=== PATIENT | female | born 1960 | race Caucasian/White ===

== ENCOUNTER 2019-04-20 11:00 | Outpatient (RCR) | payer MEDICAID, OTHER, SELFPAY ==
[2019-03-22 12:36] VITALS: BP_SYST 156; BP_SYST 180
--- NOTE | 2019-03-22 13:50 | PTOPEVAL ---
Thank you for referring this patient to [facility]. Please review, sign, date and return this plan of care DIMAS. Pt seen for PT eval due to shoulder pain. She demonstrates impairments of left shoulder for weakness, decreased range, increased pain and decreased UE function. She requires additional skilled therapy 2x/wk x 8 wk to address impairments. I agree with and certify that the following plan of care is medically necessary. Referring Physician Date Attending Provider: Priyanka Gupta, Referring Provider: *PT Outpatient Evaluation Start: 03/22/19 12:32 Freq: Status: Active Protocol: Document 03/22/19 12:36 CAP (Rec: 03/22/19 13:34 CAP [id number]) Therapy Assessment Status Assessment Status Assessment Status Evaluation Outpatient Past Medical History Neurological History Hx Cerebrovascular Accident (CVA) Yes Hx Transient Ischemic Attacks (TIA) Yes Cardiovascular History Hx Coronary Artery Disease Yes Hx Hypercholesterolemia Yes Hx Hypertension Yes Respiratory History Hx Bronchitis Yes Hx Chronic Obstructive Pulmonary Disease Yes (COPD) Gastrointestinal History Hx Gastroesophageal Reflux Disease Yes Hx Irritable Bowel Yes Musculoskeletal History Hx Back Pain Yes: chronic neck and back pain Hx Fibromyalgia Yes Reproductive History Hx Section Yes Psychosocial History Hx Anxiety Yes Hx Depression Yes Hx Post Traumatic Stress Disorder Yes Pain History Has Past Pain Affected Your Daily Life Yes Evaluation Information Problem Diagnosis left shoulder pain Onset 12/26/18 Cause fall Subjective Information Pt had a fall 4 wk ago ( Text:As Reported By Patient/ ) landing on her back and Family left shoulder. She reports severe pain of left shoulder with ADL's and UE motion. She has limitations with reaching and carrying objects. 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 She received actue rehab in [id number] due to TIA. 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 She does not perform HEP or general fitness program. Diagnostic Tests X-Rays For This Problem Yes: no fr
--- NOTE | 2019-03-24 11:48 | PCPTNOTE ---
Patient called & cancelled scheduled appointment this date due to weather.
--- NOTE | 2019-04-01 11:31 | PCPTNOTE ---
Patient called & cancelled scheduled appointment this date due to having a sick kid.
[2019-04-20 10:59] VITALS: BP_SYST 180
--- NOTE | 2019-04-20 11:53 | PTOPEVAL ---
Thank you for referring this patient to [facility]. Please review, sign, date and return this plan of care DIMAS. Pt seen for 6 physical therapy visits to address shoulder impairments and pain. She demonstrates limited progress with shoulder range and strength. She reports improved function on the Quick Dash, but states she is not using the left UE for ADL's and IADL's 90% of the time. She demonstrates limited progress towards therapy goals. Recommend cont therapy 1-2x/wk x 4-6 wk to improve left UE impairments and function. I agree with and certify that the following plan of care is medically necessary. Referring Physician Date Attending Provider: Priyanka Gupta, Referring Provider: *PT Outpatient Re-Evaluation Start: 03/22/19 12:32 Freq: Status: Active Protocol: Document 04/20/19 10:59 CAP (Rec: 04/20/19 11:49 CAP [email or web address]) Therapy Assessment Status Re-evaluation Evaluation Information Problem Diagnosis left shoulder pain Onset 12/26/18 Cause fall Additional Evaluation Detail Pt had a fall 4 wk ago () landing on her back and left shoulder. She reports severe pain of left shoulder with ADL's and UE motion. She has limitations with reaching and carrying objects. 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 She received actue rehab in [id number] due to TIA. 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 Subjective Information Reports her shoulder is Query Text:As Reported By Patient/ painful with all motions. Family Reports limitations with ADL's due to pain. She does not use of left UE with most activities. She is performing her HEP daily. She does feel like the shoulder is moving better with the exercises, but also has increased pain. Reports improve numbness and tingling of left UE. She is able to carry 5# objects with the left UE. The use of heat provides minimal relief of pain. Pain Assessment Timing of Pain Assessment Timing of
--- NOTE | 2019-05-04 11:39 | PCPTNOTE ---
Patient called & cancelled scheduled appointment this date due to health risk for Coronavirus. She has decided to cancel her remaining therapy appointment due to medical concerns.
--- NOTE | 2019-05-04 11:47 | PCPTNOTE ---
Admitting Provider: Attending Provider: Priyanka Gupta, Patient:Anusha Huerta Date of :1960 Patient has not returned for any further treatments since 04/20/2019, therefore [f he/she] will be discharged from therapy at this time. She does not wish to continue therapy due to potential risk with the Coronavirus. The goals have been partially achieved. Thank you for referring this patient to [facility]. Please review, sign, date and return this discharge summary DIMAS. I have been updated about the patient's current status and I agree with discharge from the above service at this time. Referring Physician Date
== END 2019-05-04 14:17 | disposition home or self-care (01) ==
LOC: ANHPT 11:00
PROVIDERS: PCP Family Medicine; Visit Provider Family Medicine
DX: M25.519 Pain in unspecified shoulder (principal)
CPT/HCPCS: 97014; 97110; 97140; 97162; G0283

== ENCOUNTER 2019-12-20 12:59 | Outpatient (CLI) | payer OTHER, SELFPAY ==
--- NOTE | ~2019-12-20 | MM_ITS ---
EXAMINATION: MM diagnostic clive BI w juan francisco HISTORY: History of fibrocystic disease TECHNIQUE: Additional 3-D tomosynthesis images of the breasts were performed and synthetic 2-D images were generated. CAD analysis was submitted and interpreted. COMPARISON: Comparison to multiple prior studies sequentially, with oldest reviewed study dated 01/17. BREAST PARENCHYMAL COMPOSITION: Breast composed of scattered areas of fibroglandular density. FINDINGS: There are no suspicious masses, calcifications or architectural distortion in either breast to suggest malignancy. Stable mammogram. IMPRESSION: 1. No mammographic evidence for malignancy in either breast. 2. Routine yearly screening mammogram and regular clinical breast examination are recommended. BI-RADS Category 1: Negative Reviewed, dictated and finalized at location A. LY COORDINATOR IMPRESSION: 1. No mammographic evidence for malignancy in either breast. 2. Routine yearly screening mammogram and regular clinical breast examination a re recommended. BI-RADS Category 1: Negative
== END 2019-12-20 13:00 | disposition home or self-care (01) ==
PROVIDERS: PCP Family Medicine; Visit Provider Physician Assistant
DX: R92.8 Other abnormal and inconclusive findings on diagnostic imaging of breast (principal)
CPT/HCPCS: 77062; 77066; G0279

== ENCOUNTER 2020-03-29 09:56 | Outpatient (CLI) | payer OTHER, SELFPAY ==
--- NOTE | ~2020-03-29 | XR_ITS ---
EXAMINATION: XR knee RT 3V DATE: 03/29/2020 10:31 INDICATION: Right knee pain TECHNIQUE: Three views of the right knee were obtained. COMPARISON: None. FINDINGS: Alignment is normal. No fracture or osteochondral lesion. There is mild tricompartmental os teoarthritis characterized by tiny marginal osteophytes. No joint effusion/synovitis. Calcified athe rosclerosis is noted. IMPRESSION: 1. No acute osseous abnormality. Reviewed, dictated and finalized at location A. RIAL SPECIALIST
--- NOTE | ~2020-03-29 | XR_ITS ---
EXAMINATION: XR lumbar spine 2-3V DATE: 03/29/2020 10:31 INDICATION: Low back pain TECHNIQUE: Anteroposterior and lateral views of the lumbar spine, and cone-down lateral view of the l umbosacral junction were obtained. COMPARISON: 10/14/2016 FINDINGS: Lumbar levocurvature is noted. There is no fracture. Bone alignment is normal. There is sev ere loss of intervertebral disc space height at L3-4. Moderate loss of intervertebral disc space heig ht is present at L1-2 and L2-3. The vertebral body heights are maintained. There is severe facet oste oarthritis of the lower lumbar spine. Calcified atherosclerosis is noted. Degenerative osteophytes pr oject from the anterior endplates of multiple vertebral bodies. Surgical clips in the right upper brook drant are likely from prior cholecystectomy. IMPRESSION: 1. Severe lumbar spondylosis without acute findings or significant interval change. Reviewed, dictated and finalized at location A. T MGR IMPRESSION: 1. Severe lumbar spondylosis without acute findings or significant interval matt nge.
--- NOTE | ~2020-03-29 | XR_ITS ---
EXAMINATION: XR tibia fibula RT 2V INDICATION: Right leg pain TECHNIQUE: Two views of the right tibia and fibula are obtained on three radiographs COMPARISON: None available FINDINGS: Bone alignment is normal. There is no fracture. Mild osteoarthritis is noted at the knee. T here is calcified atherosclerosis. IMPRESSION: 1. No acute osseous abnormality. Reviewed, dictated and finalized at location A. SALES REPRESENTATIVE
--- NOTE | ~2020-03-29 | XR_ITS ---
EXAMINATION: XR knee LT 3V DATE: 03/29/2020 10:31 INDICATION: Left knee pain TECHNIQUE: Three views of the left knee were obtained. COMPARISON: None. FINDINGS: Alignment is normal. No fracture or osteochondral lesion. There is mild tricompartmental os teoarthritis characterized by tiny marginal osteophytes. No joint effusion/synovitis. Calcified athe rosclerosis is noted. There is a partially imaged endovascular stent projecting over the mid femur. IMPRESSION: 1. No acute osseous abnormality. Reviewed, dictated and finalized at location A. HAKAHAERE
--- NOTE | ~2020-03-29 | XR_ITS ---
EXAMINATION: XR hip BI 2V w AP pelvis DATE: 03/29/2020 10:31 INDICATION: Bilateral hip pain TECHNIQUE: AP view the pelvis and two views of each hip were obtained. COMPARISON: 02/05/2019 FINDINGS: Bone alignment is normal. There is no fracture. Calcified atherosclerosis is noted. There i s severe lower lumbar spondylosis. A partially imaged endoluminal stent is noted in the left thigh. IMPRESSION: 1. No acute osseous abnormality. Reviewed, dictated and finalized at location A. CTOR SAFETY
--- NOTE | ~2020-03-29 | XR_ITS ---
EXAMINATION: XR tibia fibula LT 2V INDICATION: Left leg pain TECHNIQUE: Two views of the left tibia and fibula are obtained. COMPARISON: None available FINDINGS: Bone alignment is normal. There is no fracture. Mild osteoarthritis is noted at the knee. T here is calcified atherosclerosis. IMPRESSION: 1. No acute osseous abnormality. Reviewed, dictated and finalized at location A. APPLICATION SUPPORT SPECIALIST
== END 2020-03-29 09:57 | disposition home or self-care (01) ==
LOC: ANHIMG 10:04
PROVIDERS: PCP Family Medicine; Visit Provider Family Medicine
DX: M79.606 Pain in leg, unspecified (principal); M25.551 Pain in right hip; M25.552 Pain in left hip; M25.561 Pain in right knee; M25.562 Pain in left knee; M54.5 Low back pain; M47.896 Other spondylosis, lumbar region
CPT/HCPCS: 72100; 73521; 73562; 73590

== ENCOUNTER 2021-03-30 13:42 | Outpatient (CLI) | payer OTHER, SELFPAY ==
--- NOTE | ~2021-03-30 | CT_ITS ---
EXAMINATION: CT brain wo con DATE: 03/30/2021 14:25 INDICATION: Fall, head injury. January 2021. History of transient ischemic attack. TECHNIQUE: Computed tomography (CT) of the head was performed without intravenous contrast. The mA wa s adjusted according to patient size. Iterative reconstruction technique was employed. Exam dose: 60 5.33 mGy-cm total exam DLP. COMPARISON: None FINDINGS: Bilateral carotid siphon and supraclinoid internal carotid artery calcifications. There is a wedge-shaped infarct along the posteromedial aspect of the right cerebellar hemisphere. Chronic right basal ganglia lacunar infarcts. Chronic anterior left. Ventricular lacunar infarct. There is a chronic focal posterior left parietal infarct. No intracranial mass lesion or hemorrhage, midline shift or mass effect. No acute cerebrovascular acc ident is evident, but CT is not sensitive for detection of hyperacute nonhemorrhagic cerebrovascular infarct. No subdural or epidural hematoma. There is prominent posterior soft tissue thickening of the left sphenoid sinus; paranasal sinuses are otherwise unremarkable. There is minimal opacification of inferior right mastoid air cells. The mastoid air cells are otherwi se unremarkable bilaterally. No fracture or bone destruction of the cranial vault. IMPRESSION: Chronic cerebellar and bilateral cerebral infarcts No acute intracranial finding or acute hemorrhage Cerebral atherosclerosis Reviewed, dictated and finalized at Location A. Reviewed, dictated and finalized at location A. TIONSHIP CONSULTANT
--- NOTE | ~2021-03-30 | XR_ITS ---
XR hip RT min 2V DATE: 03/30/2021 15:28 INDICATION: Chronic right hip pain radiating to back TECHNIQUE: AP and lateral views of right hip COMPARISON: March 29, 2020 AP pelvis and bilateral hips FINDINGS: No fracture or dislocation, avascular necrosis or bone destruction of the right hip. The pu bic symphysis and sacroiliac joints are intact. IMPRESSION: No significant abnormality Reviewed, dictated and finalized at location A. O ELECTRIC STATION OPERATOR IMPRESSION: No significant abnormality
== END 2021-03-30 13:43 | disposition home or self-care (01) ==
PROVIDERS: PCP Family Medicine; Visit Provider Physician Assistant
DX: S09.90XA Unspecified injury of head, initial encounter (principal); X58.XXXA Exposure to other specified factors, initial encounter
CPT/HCPCS: 70450; 73502

== ENCOUNTER → 2021-04-14 00:24 | Outpatient (CLI) | payer OTHER, SELFPAY ==
[2021-04-14 17:38] LABS: SARS-CoV-2 RNA PCR Negative
== END ==
PROVIDERS: PCP Family Medicine; Visit Provider Internal Medicine Gastroenterology
DX: Z01.812 Encounter for preprocedural laboratory examination (principal); Z20.822 Contact with and (suspected) exposure to COVID-19
CPT/HCPCS: C9803; U0003; U0005

== ENCOUNTER 2021-04-17 01:57 | Day surgery (SDC) | payer OTHER, SELFPAY ==
[2021-04-09 13:15] VITALS: BMI 25.4
--- NOTE | 2021-04-12 12:33 | PC.NURSE ---
SPOKE WITH PATIENT REGARDING PLAVIX, LAST DOSE TO BE TAKEN TODAY 04/12/21 AND TO HOLD TILL PROCEDURE 04/17/21. PT VERBALIZES UNDERSTANDING
[2021-04-17 08:43] VITALS: BP 146/70; PULSE 98; RESP 20; TEMP 36.1; O2SAT 100; BMI 24.3
--- NOTE | 2021-04-17 08:47 | WPDGICN ---
Assessment and Plan Assessment and plan (1) History of colon polyps: Code(s): Z86.010 - Personal history of colonic polyps Status: Acute Assessment and Plan: Patient has a history of adenomatous colon polyp most recently 2013. Plan is for surveillance colonoscopy at this time and likely at 5 year intervals in the future. GI Consult Note Consult date/time: 04/17/21 08:47 HPI: Anusha Huerta is a 60 year old female presents for screening colonoscopy. Patient had a previous colonoscopy in 2013 under the direction of Dr. Milton. At that time an adenomatous polyp was removed from the colon. Patient states that her current weight appetite bowel movements are normal. She denies abdominal pain. She has no pain. Family history is noncontributory. Review of Systems Review of Systems: All systems reviewed & are unremarkable except as noted in HPI and below PMFSH Social History Social History Smoking packs per day: 0.75 Smoking cigarettes per day: 15.0 Years smoked: 20 Smoking pack-years: 15.00 Smoking status: Former smoker Tobacco type: cigarettes Additional smoking assessment comments: OCC. CIG. OR VAPES NOW Alcohol intake: never Substance use: never Substance use type: marijuana Other substance usage details: OCC. 4-5 MO. AGO Living arrangements: with family Spiritual care concerns: No Meds Home Medications and Allergies Home Medications Medication Instructions Recorded Confirmed Type albuterol sulfate [Ventolin HFA] 2 puff INHALATION TID 04/09/21 04/09/21 History amitriptyline 50 mg PO HS 04/09/21 04/09/21 History atorvastatin 40 mg PO HS 04/09/21 04/09/21 History budesonide-formoterol [Symbicort] 2 puff INHALATION Q12H PRN 04/09/21 04/09/21 History cholecalciferol (vitamin D3) 125 mcg PO DAILY 04/09/21 04/09/21 History [Vitamin D3] clonazepam 0.5 mg PO BID PRN 04/09/21 04/09/21 History clopidogrel 75 mg PO HS 04/09/21 04/09/21 History cyclosporine [Restasis] 1 drp EACH EYE BID 04/09/21 04/09/21 History ezetimibe 10 mg PO DAILY 04/09/21 04/09/21 History fenofibrate 160 mg PO HS 04/09/21 04/09/21 History fluticasone propionate 2 spray INTRANASAL DAILY PRN 04/09/21 04/09/21 History hydrocodone-acetaminophen 1 tablet PO BID PRN 04/09/21 04/09/21 History lisinopril 5 mg PO DAILY 04/09/21 04/09/21 History oxybutynin chloride 10 mg PO HS 04/09/21 04/09/21 History tizanidine 4 mg PO Q6H PRN 04/09/21 04/09/21 History tobramycin-dexamethasone 1 drp EACH EYE PRN PRN 04/09/21 04/09/21 History valacyclovir 500 mg PO BID 04/09/21 04/09/21 History Allergies Allergy/AdvReac Type Severity Reaction Status Date / Time clarithromycin Allergy Intermediate Itching Verified 04/17/21 08:41 Vital Signs Vital Signs - 24 hr 04/17/21 08:43 Temperature 97.0 F L Pulse Rate 98 Respiratory Rate 20 Blood Pressure 146/70 H Pulse Oximetry 100 Exam Narrative: Physical exam reveals patient to be alert. Vital signs stable. HEENT exam is unremarkable. Patient is anicteric. Heart is without murmur or extra sounds. Abdominal exam bowel sounds are present soft nontender with no organomegaly. Digital external rectal exam is normal.
[2021-04-17] MEDS: LACTATED RINGERS 1,000 ML 150 ML IV CONT (08:58)
--- NOTE | 2021-04-17 09:32 | WPDANESEPPF ---
Anes - Initial Pre Proc Eval Procedure: Operation Date: 04/17/21 10:00 Proposed Procedures p Screening Colonoscopy - Farrukh Domingo MD Date/Time: 04/17/21 09:32 Surgeon: Farrukh Domingo MD Pre Op Diagnosis: neoplasm screening Patient Data Age: 60 Gender: F Height: 1.73 m Weight: 72.5 kg Last Vital Signs Temp 97.0 F L 04/17/21 08:43 Pulse 98 04/17/21 08:43 Resp 20 04/17/21 08:43 BP 146/70 H 04/17/21 08:43 Pulse Ox 100 04/17/21 08:43 Allergies Allergy/AdvReac Type Severity Reaction Status Date / Time clarithromycin Allergy Intermediate Itching Verified 04/17/21 08:41 Home Medications Medication Instructions Recorded Confirmed Type albuterol sulfate [Ventolin HFA] 2 puff INHALATION TID 04/09/21 04/09/21 History amitriptyline 50 mg PO HS 04/09/21 04/09/21 History atorvastatin 40 mg PO HS 04/09/21 04/09/21 History budesonide-formoterol [Symbicort] 2 puff INHALATION Q12H PRN 04/09/21 04/09/21 History cholecalciferol (vitamin D3) 125 mcg PO DAILY 04/09/21 04/09/21 History [Vitamin D3] clonazepam 0.5 mg PO BID PRN 04/09/21 04/09/21 History clopidogrel 75 mg PO HS 04/09/21 04/09/21 History cyclosporine [Restasis] 1 drp EACH EYE BID 04/09/21 04/09/21 History ezetimibe 10 mg PO DAILY 04/09/21 04/09/21 History fenofibrate 160 mg PO HS 04/09/21 04/09/21 History fluticasone propionate 2 spray INTRANASAL DAILY PRN 04/09/21 04/09/21 History hydrocodone-acetaminophen 1 tablet PO BID PRN 04/09/21 04/09/21 History lisinopril 5 mg PO DAILY 04/09/21 04/09/21 History oxybutynin chloride 10 mg PO HS 04/09/21 04/09/21 History tizanidine 4 mg PO Q6H PRN 04/09/21 04/09/21 History tobramycin-dexamethasone 1 drp EACH EYE PRN PRN 04/09/21 04/09/21 History valacyclovir 500 mg PO BID 04/09/21 04/09/21 History Patient hx anesthesia problems: none Family hx anesthesia problems: none Results Review: All pre-operative results and documents have been reviewed as part of the pre-operative evaluation. [facility] Past Medical History Medical History (Updated 04/17/21 @ 09:33 by Santino Kaur MD) CAD (coronary artery disease) Hyperlipidemia Hypertension PVD (peripheral vascular disease) with claudication TIA (transient ischemic attack) Social History Social History Smoking packs per day: 0.75 Smoking cigarettes per day: 15.0 Years smoked: 20 Smoking pack-years: 15.00 Smoking status: Former smoker Tobacco type: cigarettes Additional smoking assessment comments: OCC. CIG. OR VAPES NOW Alcohol intake: never Substance use: never Substance use type: marijuana Other substance usage details: OCC. 4-5 MO. AGO Living arrangements: with family Spiritual care concerns: No Anes - Eval Final PreProcedure Day of Procedure 04/17/21 09:32 Patient weight: normal Heart: regular rate and rhythm Lungs: clear to auscultation Airway: Mallampati scale class II Neurological: alert and oriented Last oral intake: >/= 8 hours ASA classification: III Emergent: no Anesthetic plan: proceed Anesthesia type and monitoring: general GIVS and standard monitoring Results Review: All pre-operative results and documents have been reviewed as part of the pre-operative evaluation. Informed Consent: The patient's anesthetic plan and its attendant risks and benefits were discussed with the patient/family/POA. Questions were solicited and answers provided to the satisfaction of the patient/family/POA.
[2021-04-17 10:08] VITALS: BP 121/64; PULSE 77; RESP 16; O2SAT 98
--- NOTE | 2021-04-17 10:10 | SUR.OPER ---
DR GONZALEZ MADE AWARE ONLY 1 ASCENDING COLON POLYP RETRIEVED. Yaakov ORELLANA RN & Chucho BAZZI RN.
[2021-04-17 10:18] VITALS: BP 141/64; PULSE 75; RESP 17; O2SAT 100
[2021-04-17 10:29] VITALS: BP 158/105; PULSE 90; RESP 18; O2SAT 100
== END 2021-04-17 10:45 | disposition home or self-care (01) ==
PROVIDERS: Visit Provider Internal Medicine Gastroenterology
PROC: 0DJD8ZZ Inspection of Lower Intestinal Tract, Via Natural or Artificial Opening Endoscopic (ICD-10-PCS; CPT 45378; principal; 2021-04-17 10:00)
DX: Z12.11 Encounter for screening for malignant neoplasm of colon (principal); D12.2 Benign neoplasm of ascending colon; D12.4 Benign neoplasm of descending colon; K64.8 Other hemorrhoids; Z79.51 Long term (current) use of inhaled steroids; I25.10 Atherosclerotic heart disease of native coronary artery without angina pectoris; I10 Essential (primary) hypertension; E78.5 Hyperlipidemia, unspecified; I73.9 Peripheral vascular disease, unspecified; Z86.73 Personal history of transient ischemic attack (TIA), and cerebral infarction without residual deficits; Z87.891 Personal history of nicotine dependence; F12.90 Cannabis use, unspecified, uncomplicated
CPT/HCPCS: 45385; 88305; J2704; J7120

== ENCOUNTER → 2021-12-18 09:21 | Outpatient (CLI) | payer MEDICARE, MEDICAID, SELFPAY ==
--- NOTE | ~2021-12-18 | XR_ITS ---
XR_CERV2-3V_CR DATE: 12/18/2021 09:50 INDICATION: Chronic neck pain. No injury. TECHNIQUE: AP, lateral, open-mouth views COMPARISON: 10/14/2016 cervical spine FINDINGS: There is reversal cervical curvature. There is chronic moderately severe degenerative disc disease at C3-4 and severe degenerative disease at C4-5, C5-6 and C6-7. There is uncovertebral joint spurring, particularly prominent at C5-6 and C6-7. C1 and C2 are normally aligned and the odontoid process appears intact. No fracture or dislocation or locked facet or prevertebral soft tissue swelling. IMPRESSION: Reversal cervical curvature Severe cervical spondylosis Reviewed, dictated and finalized at Location [facility]. Reviewed, dictated and finalized at location A.
--- NOTE | ~2021-12-18 | XR_ITS ---
XR lumbar spine 2-3V DATE: 12/18/2021 09:50 INDICATION: Chronic low back pain. No injury. TECHNIQUE: AP, lateral, coned lateral lumbosacral views COMPARISON: None FINDINGS: There is approximately 18 degrees levoscoliosis measured from L2 to L4. There is moderate degenerative disc disease at L1 to and severe degenerative disease at L2-3, L3-4. T here is degenerative disc disease on the left L4-5. L5-S1 mild degenerative disc disease. Minimal grade 1 anterolisthesis at L5-S1, likely due to degenerative change at the apophyseal joints. No fracture or bone destruction is evident. The included lower thoracic and lumbar pedicles are intac t. The sacroiliac joints appear normal. There is extensive calcification of the abdominal aorta and iliac arteries. No evidence of abdominal aortic aneurysm. Status post cholecystectomy. IMPRESSION: Levoscoliosis Multilevel degenerative disc disease, particularly severe at L2-3 and L3-4 Minimal grade 1 anterolisthesis at L5-S1 Reviewed, dictated and finalized at location A.
== END ==
PROVIDERS: PCP Physician Assistant; Visit Provider Physician Assistant
DX: M51.36 Other intervertebral disc degeneration, lumbar region (principal); M47.892 Other spondylosis, cervical region
CPT/HCPCS: 72040; 72100

== ENCOUNTER 2022-01-29 14:28 | Outpatient (CLI) | payer MEDICARE, MEDICAID, SELFPAY | END 2022-01-29 14:29 | disposition home or self-care (01) | LOC: ANHAUDIO 14:30 | PROVIDERS: PCP Physician Assistant; Visit Provider Physician Assistant | DX: H93.19 Tinnitus, unspecified ear (principal); H90.3 Sensorineural hearing loss, bilateral | CPT/HCPCS: 92557; 92567 ==

== ENCOUNTER → 2022-02-13 08:14 | Outpatient (CLI) | payer MEDICARE, MEDICAID, SELFPAY ==
--- NOTE | ~2022-02-13 | US_ITS ---
Ultrasound of the abdomen CLINICAL HISTORY: Hernia repair TECHNIQUE: Targeted sonographic imaging of the abdominal wall region was performed in the area of cli nical concern. FINDINGS: No mass lesion or fluid collection identified. No hernia identified. IMPRESSION: No definite imaging correlate seen for the area of palpable concern at the abdominal wall region. Reviewed, dictated and finalized at [facility]. UNE TELLER IMPRESSION: No definite imaging correlate seen for the area of palpable concern at the abdo jose wall region.
== END ==
PROVIDERS: PCP Physician Assistant; Visit Provider Physician Assistant
DX: Z98.890 Other specified postprocedural states (principal)
CPT/HCPCS: 76705

== ENCOUNTER → 2023-02-06 13:52 | Outpatient (CLI) | payer MEDICARE, SELFPAY ==
--- NOTE | ~2023-02-06 | MM_ITS ---
EXAMINATION: MM screening clive BI w juan francisco HISTORY: Screening mammogram TECHNIQUE: Craniocaudal and mediolateral oblique 3-D tomosynthesis images were obtained and synthetic 2-D images were generated. CAD analysis was submitted and interpreted. COMPARISON: 12/20/2019 bilateral screening mammogram BREAST PARENCHYMAL COMPOSITION: There are scattered areas of fibroglandular density. FINDINGS: There is no evidence of suspicious mass, calcification, or architectural distortion to sugg est malignancy in either breast. There has been no suspicious interval change. IMPRESSION: 1. No mammographic evidence of malignancy. 2. Recommend routine screening mammography in one year. BI-RADS Category 1: Negative Reviewed, dictated and finalized at location A. TY COMPLIANCE SPECIALIST
== END ==
PROVIDERS: PCP Internal Medicine
DX: Z12.31 Encounter for screening mammogram for malignant neoplasm of breast (principal)
CPT/HCPCS: 77063; 77067

== ENCOUNTER 2023-05-28 20:48 | Emergency (ER) | payer MEDICARE, SELFPAY ==
[2023-05-28] VITALS (33 sets, daily range): BP systolic 71–135; BP diastolic 40–117; PULSE 62–93; RESP 11–20; TEMP 36.1; O2SAT 95–100
--- NOTE | ~2023-05-28 | CT_ITS ---
EXAMINATION: CT brain wo con DATE: 05/28/2023 22:43 INDICATION: Headache TECHNIQUE: Computed tomography (CT) of the head was performed without intravenous contrast. The dose- length product was 605.33 mGy-cm. Automated exposure control and iterative reconstruction technique w ere employed. COMPARISON: CT report dated 03/30/2021 FINDINGS: Chronic bilateral lacunar infarctions. Chronic right cerebellar infarctions. Chronic left p arietal infarction. No ventriculomegaly or midline shift. There is intracranial atherosclerosis. No a cute intracranial hemorrhage, infarction, mass or mass effect. Paranasal sinuses and mastoids are pne umatized. There are scattered mild periventricular and subcortical white matter changes, most likely related to small vessel ischemic disease (microangiopathy). IMPRESSION: 1. No acute intracranial abnormality. Reviewed, dictated and finalized at location A.
--- NOTE | 2023-05-28 21:07 | ED.GENADULT ---
HPI - General Adult General Chief complaint: Unspecified Stated complaint: high blood pressure Time Seen by Provider: 05/28/23 21:00 Source: patient Mode of arrival: ambulatory Limitations: no limitations History of Present Illness HPI narrative: 62-year-old female, ex-smoker with a history of hypertension, dyslipidemia, chronic pain from cervical spondylosis, anxiety / depression, COPD, peripheral vascular disease status post bilateral lower extremity interventions with claudication, left carotid stenosis status post carotid endarterectomy on 05/26 2023 presents to the ER with -- high blood pressure. The patient stated that her blood pressures have been 190/94. Current blood pressure is noted to be 130/63. no headache, no chest pain. No shortness of breath. -- Left carotid postoperative pain -- chronic headache no new focal deficits are noted. No speech abnormalities. Onset (ago): hour(s) ( 12 hours) Pain Consistency: constant Relieving factors: none Exacerbating factors: none Related Data Home Medications Medication Instructions Recorded Confirmed albuterol sulfate 90 mcg/actuation 1 puff inhalation PRN PRN 04/09/21 05/28/23 aerosol inhaler (Ventolin HFA) WHEEZING, SHORTNESS OF BREATH atorvastatin 40 mg tablet (Lipitor) 80 mg PO DAILY 04/09/21 05/28/23 cyclosporine 0.05 % eye drops in a 1 drp EACH EYE BID 04/09/21 05/28/23 dropperette (Restasis) ezetimibe 10 mg tablet 10 mg PO DAILY 04/09/21 05/28/23 fenofibrate 160 mg tablet 160 mg PO DAILY 04/09/21 05/28/23 valacyclovir 500 mg tablet 1,000 mg PO HS 04/09/21 05/28/23 (Valtrex) famotidine 40 mg tablet (Pepcid) 40 mg PO BID 10/31/22 05/28/23 irbesartan 150 mg tablet (Avapro) 150 mg PO HS 12/24/22 05/28/23 Adult Aspirin Regimen 81 mg PO DAILY 05/28/23 05/28/23 Aspercreme (lidocaine) 1 patch topical DAILY 05/28/23 05/28/23 clindamycin 1 %-benzoyl peroxide 5 1 applic topical PRN PRN Acne 05/28/23 05/28/23 % topical gel ergocalciferol (vitamin D2) 1,250 1,250 mcg PO MONTHLY 05/28/23 05/28/23 mcg (50,000 unit) capsule (Vitamin D2) fluticasone fur. 100 mcg-umeclid See Rx Instructions .Route .COMPLEX 05/28/23 05/28/23 62.5 mcg-vilant 25 mcg inhalat.powder (Trelegy Ellipta) lorazepam 0.5 mg tablet (Ativan) 0.5 mg PO PRN PRN Anxiety 05/28/23 05/28/23 oxycodone 5 mg tablet 5 mg PO PRN PRN Pain 05/28/23 05/28/23 propranolol 10 mg tablet 10 mg PO TID 05/28/23 05/28/23 quetiapine 50 mg tablet (Seroquel) 50 mg PO HS 05/28/23 05/28/23 tizanidine 4 mg tablet (Zanaflex) 4 mg PO Q6H PRN Spasms 05/28/23 05/28/23 Allergies Allergy/AdvReac Type Severity Reaction Status Date / Time clarithromycin Allergy Intermediate Itching Verified 05/28/23 22:23 venlafaxine [From Effexor] Allergy Unknown Verified 05/28/23 22:16 adhesive AdvReac Unknown Verified 05/28/23 22:16 Review of Systems Review of Systems: All systems reviewed & are unremarkable except as noted in HPI and below Constitutional: Constitutional: Reports as per HPI and Reports no additional constitutional complaints Eyes: Eyes: Reports as per HPI and Reports no additional eye complaints ENT: Reports system reviewed and no additional complaints, except as documented and Reports as per HPI Cardiovascular: Cardiovascular: Reports as per HPI and Reports no additional cardiovascular complaints Respiratory: Respiratory: Reports as per HPI and Reports no additional respiratory complaints Gastrointestinal: Gastrointestinal: Reports as per HPI and Reports no additional gastrointestinal complaints Genitourinary: Genitourinary: Reports no additional female genitourinary complaints and Reports as per HPI Musculoskeletal: Musculoskeletal: Reports no additional musculoskeletal complaints and Reports as per HPI Comments: Chronic neck pain and headache Integumentary/Breasts: Skin/Breast: Reports system reviewed and no additional complaints, except as docu Comments: the right carotid incision looks healthy.
[2023-05-28 21:35] LABS: Basophils Absolute Auto 0.04 K/mm3 (0.00-0.10); Basophils Percent Auto 0.5 % (0.0-1.0); Eosinophils Percent Auto 2.7 % (1.0-6.0); Hematocrit 33.5 % (35.0-49.0); Hemoglobin 10.7 g/dL (12.0-15.0); Immature Granulocyte Absolute 0.02 K/mm3 (0.00-0.00); Immature Granulocyte Percent A 0.3 % (0.0-0.0); Lymphocytes Absolute Auto 2.15 K/mm3 (1.10-4.50); Lymphocytes Percent Auto 28.9 % (18.0-42.0); Mean Corpuscular HGB Conc 31.9 g/dL (32-36); Mean Corpuscular Hemoglobin 29.4 pg (27.0-31.0); Mean Platelet Volume 9.9 fl (9.2-11.8); Monocytes Absolute Auto 0.75 K/mm3 (0.10-0.90); Monocytes Percent Auto 10.1 % (2.0-11.0); Neutrophils Absolute Auto 4.27 K/mm3 (1.70-7.20); Neutrophils Percent Auto 57.5 % (50.0-70.0); Platelet Count Result 335 K/mm3 (150-420); Red Blood Count 3.64 M/mm3 (4.20-5.40); Red Cell Distribution Width 13.5 % (11.6-14.4); White Blood Count 7.4 K/mm3 (4.8-10.8)
--- NOTE | 2023-05-28 21:53 | ECG_ITS ---
Measurements Intervals [place] Rate: 72 P: 38 TX: 180 QRS: 32 QRSD: 82 T: 37 QT: 383 AVG RR 826 QTc: 407 QTcB 421 QTcF 408 Interpretive Statements SINUS RHYTHM LOW QRS VOLTAGE IN PRECORDIAL LEADS [QRS DEFLECTION < 1.0 mV IN CHEST LEADS] BORDERLINE ECG SEE SCANNED COPY FOR SIGNATURE MTDD
[2023-05-28 21:55] LABS: Anion Gap 6 mmol/L (4-12); Blood Urea Nitrogen 24 mg/dL (7-18); Calcium 8.5 mg/dL (8.5-10.1); Carbon Dioxide 28 mmol/L (21-32); Chloride 104 mmol/L (98-108); Estimated CRCL calculation 38 ml/min; Estimated Glomerular Filt Rate 39; Glucose 139 mg/dL (70-99); Osmolality Calculated 292 mOsm/kg (285-295); Potassium 4.1 mmol/L (3.5-5.1); Sodium 138 mmol/L (136-145)
[2023-05-28 21:58] LABS: Troponin I 9.7 ng/L (0.00-60.4)
[2023-05-28] MEDS: LACTATED RINGERS 500 ML 999 ML IV CONT (22:05)
[2023-05-28 22:15] LABS: Partial Thromboplastin Time 24.5 Sec (23.9-30.70); Prothrombin Time 10.8 Seconds (9.50-12.1)
[2023-05-28 22:22] LABS: Lactic Acid Reflex 1.4 mmol/L (0.4-2.0)
[2023-05-28 22:25] LABS: Alanine Aminotransferase 20 U/L (14-59); Albumin Level 3.1 g/dL (3.4-5.0); Alkaline Phosphatase 34 U/L (46-116); Aspartate Amino Transferase 22 U/L (15-37); Bilirubin Direct 0.1 mg/dL (0-0.2); Bilirubin,Total 0.3 mg/dL (0.00-1.00); Creatine Kinase 63 U/L (26-192); Lipase 24 U/L (16-77)
[2023-05-28 22:26] LABS: NT Pro B Type Natriuretic Pept 1071 pg/mL (0-125)
[2023-05-29] VITALS: PULSE 66; RESP 11; O2SAT 100
[2023-05-29 00:01] VITALS: BP 112/55; PULSE 65; RESP 14; O2SAT 100
[2023-05-29 00:23] VITALS: BP 112/55; PULSE 72
== END 2023-05-29 00:24 | disposition short-term general hospital (02) ==
PROVIDERS: Emergency Provider Internal Medicine Critical Care Medicine
DX: I95.9 Hypotension, unspecified (principal); Z98.890 Other specified postprocedural states; D64.9 Anemia, unspecified; I12.9 Hypertensive chronic kidney disease with stage 1 through stage 4 chronic kidney disease, or unspecified chronic kidney disease; N18.9 Chronic kidney disease, unspecified; E78.5 Hyperlipidemia, unspecified; J44.9 Chronic obstructive pulmonary disease, unspecified; G89.18 Other acute postprocedural pain; R51.9 Headache, unspecified; G89.29 Other chronic pain; M47.812 Spondylosis without myelopathy or radiculopathy, cervical region; I25.10 Atherosclerotic heart disease of native coronary artery without angina pectoris; I73.9 Peripheral vascular disease, unspecified; F41.9 Anxiety disorder, unspecified; F32.A Depression, unspecified; Z79.51 Long term (current) use of inhaled steroids; Z79.82 Long term (current) use of aspirin; Z86.73 Personal history of transient ischemic attack (TIA), and cerebral infarction without residual deficits; F17.290 Nicotine dependence, other tobacco product, uncomplicated; Z79.899 Other long term (current) drug therapy
CPT/HCPCS: 36415; 70450; 80048; 80076; 82550; 83605; 83690; 83880; 84484; 85025; 85610; 85730; 93005; 96365; 99285; J2371; J7060; J7120

== ENCOUNTER 2023-06-06 20:46 | Emergency (ER) | payer MEDICARE, SELFPAY ==
[2023-06-06 20:54] VITALS: BP 205/97; PULSE 86; RESP 18; TEMP 36.8; O2SAT 100
[2023-06-06 21:02] VITALS: PULSE 66
--- NOTE | 2023-06-06 21:03 | ED.GENADULT ---
HPI - General Adult General Chief complaint: Unspecified Stated complaint: high BP Time Seen by Provider: 06/06/23 20:52 History of Present Illness HPI narrative: The patient is a 62-year-old woman with multiple comorbidities: she is an ex-smoker with a history of hypertension, dyslipidemia, chronic pain from cervical spondylosis, anxiety / depression, COPD, peripheral vascular disease status post bilateral lower extremity interventions for claudication, left carotid stenosis status post carotid endarterectomy on 05/26 2023. she had presented to this emergency room 2 days after her carotid endarterectomy on 05/28/2023 with labile blood pressures, hypotensive, and was sent to [facility] for further management. She currently is on irbesartan 150 mg p.o. q.h.s. which she took at 6:00 p.m. this evening, and propranolol 10 mg p.o. t.i.d. her blood pressures have been elevated since yesterday, 170 systolic, today the blood pressures have been in the 200 systolic range. She took and dose of Excedrin for an associated headache. she called her block greaser. The increase her propranolol from 10 mg p.o. t.i.d. to a dose of 20 mg p.o. t.i.d.. She took the 1st dose of 20 mg at 3:00 p.m. today. Subsequent to that, she had an emesis episode. She has checked her blood pressure since that time, and it has remained elevated, in the 200 mmHg systolic range. She comes for evaluation. She has no other symptoms. No photophobia or sensitivity to movement or noise. No chest pain or abdominal pain. No motor sensory deficits. No other complaints. Related Data Home Medications Medication Instructions Recorded Confirmed albuterol sulfate 90 mcg/actuation 1 puff inhalation PRN PRN 04/09/21 06/06/23 aerosol inhaler (Ventolin HFA) WHEEZING, SHORTNESS OF BREATH atorvastatin 40 mg tablet (Lipitor) 80 mg PO DAILY 04/09/21 06/06/23 cyclosporine 0.05 % eye drops in a 1 drp EACH EYE BID 04/09/21 06/06/23 dropperette (Restasis) ezetimibe 10 mg tablet 10 mg PO DAILY 04/09/21 06/06/23 fenofibrate 160 mg tablet 160 mg PO DAILY 04/09/21 06/06/23 valacyclovir 500 mg tablet 1,000 mg PO HS 04/09/21 06/06/23 (Valtrex) famotidine 40 mg tablet (Pepcid) 40 mg PO BID 10/31/22 06/06/23 irbesartan 150 mg tablet (Avapro) 150 mg PO HS 12/24/22 06/06/23 aspirin 81 mg capsule 81 mg PO DAILY 05/28/23 06/06/23 ergocalciferol (vitamin D2) 1,250 1,250 mcg PO MONTHLY 05/28/23 06/06/23 mcg (50,000 unit) capsule (Vitamin D2) fluticasone fur. 100 mcg-umeclid See Rx Instructions .Route .COMPLEX 05/28/23 06/06/23 62.5 mcg-vilant 25 mcg inhalat.powder (Trelegy Ellipta) lidocaine 4 % topical patch 1 patch topical DAILY 05/28/23 06/06/23 (Aspercreme (lidocaine)) propranolol 10 mg tablet 10 mg PO TID 05/28/23 06/06/23 quetiapine 50 mg tablet (Seroquel) 50 mg PO HS 05/28/23 06/06/23 tizanidine 4 mg tablet (Zanaflex) 4 mg PO Q6H PRN Spasms 05/28/23 06/06/23 oxybutynin chloride 15 mg 15 mg PO DAILY 06/06/23 06/06/23 tablet,extended release 24 hr Allergies Allergy/AdvReac Type Severity Reaction Status Date / Time clarithromycin Allergy Intermediate Itching Verified 06/06/23 21:39 venlafaxine [From Effexor] Allergy Unknown Verified 06/06/23 21:39 adhesive AdvReac Unknown Verified 06/06/23 21:39 Review of Systems Review of Systems: All systems reviewed & are unremarkable except as noted in HPI and below Constitutional: Constitutional: Denies chills, Denies excessive sweating, Denies fatigue, Denies fever(s), Reports headache(s) and Denies weakness Eyes: Eyes: Denies change in vision and Denies photophobia ENT: Denies dysphagia, Denies dizziness, Denies lip swelling, Denies nasal congestion, Denies sore throat and Denies tongue swelling Cardiovascular: Cardiovascular: Denies chest pain, Denies syncope, Denies rapid heart rate and Denies dyspnea Respiratory: Respiratory: Denies cough, Denies dyspnea and Denies wheezing Gastrointestinal: Gastrointestinal:
[2023-06-06] MEDS: ONDANSETRON INJ 4 MG/2 ML VIAL IV PUSH ×2 (21:20→23:00)
[2023-06-06] MEDS: fentaNYL CITRATE INJ (*CRX) 100 MCG/2 ML VIAL 50 MCG IV PUSH (21:21)
[2023-06-06] MEDS: hydrALAZINE HCL 20 MG/ML VIAL 10 MG IV PUSH (21:23)
[2023-06-06 21:56] VITALS: BP 144/66; PULSE 61
--- NOTE | 2023-06-06 21:58 | PC.NURSE ---
Pain improved. Pt reports pain in left posterior neck. Pt noted to be turning head toward television on left side which is also the side of her endarterectomy. Pt bed repositioned to face television and towel roll added to pillow and pt reports improved discomfort. Call light in reach.
--- NOTE | 2023-06-06 22:20 | PC.NURSE ---
Pt resting reports still has some nausea at times. ERP aware. Awaiting further orders. Call light in reach.
[2023-06-06 22:21] VITALS: BP 122/50; PULSE 57; RESP 14; O2SAT 100
[2023-06-06 23:09] VITALS: BP 137/54; PULSE 57; RESP 16; O2SAT 96
[2023-06-06 23:25] VITALS: TEMP 36.4
== END 2023-06-06 23:25 | disposition home or self-care (01) ==
PROVIDERS: Emergency Provider Emergency Medicine; PCP Internal Medicine
DX: I16.0 Hypertensive urgency (principal); R51.9 Headache, unspecified; I10 Essential (primary) hypertension; E78.5 Hyperlipidemia, unspecified; J44.9 Chronic obstructive pulmonary disease, unspecified; I73.9 Peripheral vascular disease, unspecified; I25.10 Atherosclerotic heart disease of native coronary artery without angina pectoris; M47.812 Spondylosis without myelopathy or radiculopathy, cervical region; G89.29 Other chronic pain; Z79.51 Long term (current) use of inhaled steroids; Z79.82 Long term (current) use of aspirin; Z86.73 Personal history of transient ischemic attack (TIA), and cerebral infarction without residual deficits; F17.290 Nicotine dependence, other tobacco product, uncomplicated
CPT/HCPCS: 96374; 96375; 96376; 99284; J0360; J2405; J3010

== ENCOUNTER 2023-06-10 23:06 | Emergency (ER) | payer MEDICARE, SELFPAY ==
[2023-06-10 23:06] VITALS: BP 158/72; PULSE 69; RESP 18; TEMP 36.7; O2SAT 100
[2023-06-10 23:10] VITALS: BP 154/58
--- NOTE | 2023-06-10 23:20 | PC.NURSE ---
Patient spoke to extensively about being evaluated by ERP for her blood pressure and headache. Patient insists on going home since her blood pressure is about to her baseline, will go home and take tylenol for her headache. Patient states that she was worried at home because her home machine was reading much higher than what it is here. Blood pressure taken on both arms, see charting for results. Both were about baseline for her. Patient surgical incision also assessed of left carotid endarectetomy.. Surgical site is clean, dry and intact, no obvious signs of infection or drainage. Patient states that she hasnt had any issues with her incision site, but will follow up with her surgeon if need be. Patient educated on risks of not being seen by ERP for evaluation, states that she will come back if any other problems arise through out the night. Patient VSS at this of leaving ER. Steady gait with family member at side. Patient states that she will follow up with her PCP in the morning for further evaluation if needed.
--- NOTE | 2023-07-22 19:03 | ED.GENADULT ---
HPI - General Adult General Chief complaint: Recheck/Abnormal Lab/Rx Stated complaint: high BP History of Present Illness HPI narrative: I never saw this patient Related Data Home Medications Medication Instructions Recorded Confirmed albuterol sulfate 90 mcg/actuation 1 puff inhalation PRN PRN 04/09/21 06/12/23 aerosol inhaler (Ventolin HFA) WHEEZING, SHORTNESS OF BREATH atorvastatin 40 mg tablet (Lipitor) 80 mg PO DAILY 04/09/21 06/12/23 cyclosporine 0.05 % eye drops in a 1 drp EACH EYE BID 04/09/21 06/12/23 dropperette (Restasis) ezetimibe 10 mg tablet 10 mg PO DAILY 04/09/21 06/12/23 fenofibrate 160 mg tablet 160 mg PO DAILY 04/09/21 06/12/23 valacyclovir 500 mg tablet 1,000 mg PO HS 04/09/21 06/12/23 (Valtrex) famotidine 40 mg tablet (Pepcid) 40 mg PO BID 10/31/22 06/12/23 irbesartan 150 mg tablet (Avapro) 150 mg PO HS 12/24/22 06/12/23 aspirin 81 mg capsule 81 mg PO DAILY 05/28/23 06/12/23 ergocalciferol (vitamin D2) 1,250 1,250 mcg PO MONTHLY 05/28/23 06/12/23 mcg (50,000 unit) capsule (Vitamin D2) fluticasone fur. 100 mcg-umeclid See Rx Instructions .Route .COMPLEX 05/28/23 06/12/23 62.5 mcg-vilant 25 mcg inhalat.powder (Trelegy Ellipta) lidocaine 4 % topical patch 1 patch topical DAILY 05/28/23 06/12/23 (Aspercreme (lidocaine)) quetiapine 50 mg tablet (Seroquel) 50 mg PO HS 05/28/23 06/12/23 tizanidine 4 mg tablet (Zanaflex) 4 mg PO Q6H PRN Spasms 05/28/23 06/12/23 oxybutynin chloride 15 mg 15 mg PO DAILY 06/06/23 06/12/23 tablet,extended release 24 hr propranolol 10 mg tablet 20 mg PO TID 06/12/23 06/12/23 Allergies Allergy/AdvReac Type Severity Reaction Status Date / Time clarithromycin Allergy Intermediate Itching Verified 06/12/23 14:49 venlafaxine [From Effexor] Allergy Unknown Verified 06/12/23 14:49 adhesive AdvReac Unknown Verified 06/12/23 14:49 [facility] Past Medical History Medical History (Updated 06/13/23 @ 12:13 by JOSE [id number]) CAD (coronary artery disease) Hyperlipidemia Hypertension PVD (peripheral vascular disease) with claudication TIA (transient ischemic attack) Surgical History Surgical History H/O carotid endarterectomy History of cataract removal with insertion of prosthetic lens Family History Family History Father Alzheimer disease Social History Social History Smoking packs per day: 0.75 Smoking cigarettes per day: 15.0 Years smoked: 20 Smoking pack-years: 15.00 Smoking status: Former smoker Tobacco type: cigarettes Additional smoking assessment comments: OCC. CIG. OR VAPES NOW Alcohol intake: never Substance use: never Substance use type: marijuana Other substance usage details: OCC. 4-5 MO. AGO Lack of Transportation: No Lack of Food: Sometimes True Current Housing: I Have Housing Concerned About Future Housing: No Difficulty Paying Gas/Electric Bills: No Difficulty Paying for Meds: No Currently Unemployed: No Education: High School Diploma/GED Difficulty w/ Childcare or Family Care: No Living arrangements: with family Spiritual care concerns: No Course Vital Signs Vital signs: Vital Signs Temperature 36.7 C 06/10/23 23:06 Pulse Rate 69 06/10/23 23:06 Respiratory Rate 18 06/10/23 23:06 Blood Pressure 158/72 H 06/10/23 23:06 Pulse Oximetry 100 06/10/23 23:06 Oxygen Delivery Room Air 06/10/23 23:06 Temperature 36.7 C 06/10/23 23:06 Pulse Rate 69 06/10/23 23:06 Respiratory Rate 18 06/10/23 23:06 Blood Pressure 154/58 H 06/10/23 23:10 Pulse Oximetry 100 06/10/23 23:06 Oxygen Delivery Room Air 06/10/23 23:06 Medical Decision Making Vital Signs Vital Signs: Vital Signs Temperature 36.7 C 06/10/23 23:06 Pulse Rate 69 06/10/23 23:06 Respirator
== END 2023-06-10 23:22 | disposition left against medical advice (07) ==
PROVIDERS: Emergency Provider Emergency Medicine
DX: R51.9 Headache, unspecified (principal)
CPT/HCPCS: 99199

== ENCOUNTER 2023-06-13 10:49 | Outpatient (CLI) | payer MEDICARE, SELFPAY ==
[2023-06-13 11:08] LABS: Basophils Absolute Auto 0.11 K/mm3 (0.00-0.10); Basophils Percent Auto 1.3 % (0.0-1.0); Eosinophils Absolute Auto 0.49 K/mm3 (0.02-0.50); Eosinophils Percent Auto 5.8 % (1.0-6.0); Hematocrit 40.2 % (35.0-49.0); Hemoglobin 12.7 g/dL (12.0-15.0); Immature Granulocyte Absolute 0.03 K/mm3 (0.00-0.00); Immature Granulocyte Percent A 0.4 % (0.0-0.0); Lymphocytes Percent Auto 29.8 % (18.0-42.0); Mean Corpuscular HGB Conc 31.6 g/dL (32-36); Mean Corpuscular Hemoglobin 29.1 pg (27.0-31.0); Mean Platelet Volume 10.3 fl (9.2-11.8); Monocytes Absolute Auto 0.79 K/mm3 (0.10-0.90); Monocytes Percent Auto 9.4 % (2.0-11.0); Neutrophils Absolute Auto 4.47 K/mm3 (1.70-7.20); Neutrophils Percent Auto 53.3 % (50.0-70.0); Platelet Count Result 497 K/mm3 (150-420); Red Blood Count 4.37 M/mm3 (4.20-5.40); Red Cell Distribution Width 13.4 % (11.6-14.4); White Blood Count 8.4 K/mm3 (4.8-10.8)
[2023-06-13 11:45] LABS: Alanine Aminotransferase 26 U/L (14-59); Albumin Level 3.6 g/dL (3.4-5.0); Alkaline Phosphatase 46 U/L (46-116); Anion Gap 11 mmol/L (4-12); Aspartate Amino Transferase 23 U/L (15-37); Bilirubin,Total 0.5 mg/dL (0.00-1.00); Blood Urea Nitrogen 34 mg/dL (7-18); Calcium 9.6 mg/dL (8.5-10.1); Carbon Dioxide 26 mmol/L (21-32); Chloride 105 mmol/L (98-108); Cholesterol 168 mg/dL (0-200); Estimated Glomerular Filt Rate 22; Glucose 99 mg/dL (70-99); HDL Direct 62 mg/dL (40-60); LDL Cholesterol Calculated 87 mg/dL (<130); Osmolality Calculated 301 mOsm/kg (285-295); Potassium 5.2 mmol/L (3.5-5.1); Sodium 142 mmol/L (136-145); Total Protein 6.8 g/dL (6.4-8.2); Triglycerides 94 mg/dL (0-150)
[2023-06-15 06:44] LABS: Vitamin D 25 Hydroxy 40 ng/mL (30-100)
[2023-06-16 09:18] LABS: Thyroid Peroxidase Antibodies 3 IU/mL (<9)
== END 2023-06-13 10:50 | disposition home or self-care (01) ==
LOC: CHSLAB 10:52
PROVIDERS: PCP Internal Medicine; Visit Provider Clinical Nurse Specialist
DX: I25.10 Atherosclerotic heart disease of native coronary artery without angina pectoris (principal); J44.9 Chronic obstructive pulmonary disease, unspecified
CPT/HCPCS: 36415; 80053; 80061; 82306; 85025; 86376